=== PATIENT | male | born 1955 | race Caucasian/White ===

== ENCOUNTER 2017-02-26 18:23 | Inpatient (IN) ==
[2017-02-26 19:10] LABS: Basophils % 0.1 %; Hematocrit 35.1 % (37.5-50.1); Hemoglobin 11.5 g/dL (12.9-16.9); Immature Granulocytes % 0.5 % (0-4); Lymphocytes # 0.2 K/mcL (0.6-4.6); Lymphocytes % 1.6 %; Mean Corpuscular HGB Conc 32.8 g/dL (31.6-35.5); Mean Corpuscular Hemoglobin 29.5 pg (28.0-33.3); Mean Platelet Volume 9.1 fL (9.4-12.4); Monocytes # 0.3 K/mcL (0.0-1.3); Neutrophils # 12.7 K/mcL (1.6-8.9); Platelet Count 323 K/mcL (140-400); Red Cell Distribution Width 12.8 % (11.5-14.5); Segmented Neutrophils % 95.8 %
[2017-02-26 19:23] LABS: BUN/Creatinine Ratio 16 (6-26); Blood Urea Nitrogen 20 mg/dL (8-26); Calcium 9.4 mg/dL (8.6-10.8); Carbon Dioxide 25 mEq/L (19-29); Chloride 104 mEq/L (98-109); Glucose 145 mg/dL (70-99); Osmolality,Calculated 291 (280-300); Potassium 5.2 mEq/L (3.5-4.5); Sodium 138 mEq/L (136-145); eGFR For African Americans > 60 (> 60); eGFR For Non-African Americans > 60 (> 60)
[2017-02-26] MEDS ORDERED: 0.9 % Sodium Chloride 1,000 ML IVC ONE ×2 (19:26→19:35)
[2017-02-26] MEDS ORDERED: Ipratropium/Albuterol Neb 3 ML IH ONE (19:28)
[2017-02-26] MEDS ORDERED: Levofloxacin 750 MG/150 ML 750 MG/150 ML BAG IVPB ONE (19:35)
[2017-02-26] MEDS ORDERED: Piperacillin/Tazobactam 3.375 GM in D5% in Water (Mini-Bag+) 100 ML IVPB ONE (19:35)
[2017-02-26] MEDS ORDERED: Vancomycin 1,250 MG in D5% in Water 250 ML IVPB ONE (19:35)
--- NOTE | 2017-02-26 19:59 | Emergency Department Note ---
Disposition Clinical Impression: Hospital acquired PNA, Hyperkalemia, Elevated lactic acid level Disposition: Admitted As Inpatient Time of Disposition: 20:20 General Adult HPI - General Chief complaint: ED Shortness of Breath/Dyspnea Stated complaint: LYNDON/ cough Time Seen by Provider: 02/26/17 18:59 Source: patient, family Mode of arrival: ambulatory Limitations: no limitations Nursing Notes Reviewed: Yes Vital Signs Reviewed: Yes - History of Present Illness HPI Narrative: This is a 61-year-old male with a past medical history of COPD, recent pneumonia , rheumatoid arthritis, laryngeal cancer, CAD. He presents to the emergency department to 5 day history of worsening shortness of breath, subjective fevers and chills, a cough is productive of yellowish sputum. He went to have a CT scan today of his chest to screen for metastasis of cancer, and his cancer doctor told him to report to the emergency department regarding his positive CT scan. Pain Scale: 7 - Related Data Home Medications Medication Instructions Recorded Confirmed Alprazolam [Xanax] 1 mg PO BID 02/14/15 02/26/17 Budesonide/Formoterol 160/4.5 2 puff IH BIDR 02/14/15 02/26/17 [Symbicort 160/4.5] Clopidogrel [Plavix] 75 mg PO QAM 02/14/15 02/26/17 Docusate Sodium [Colace] 100 mg PO DAILY PRN 02/14/15 02/26/17 Hydroxychloroquine [Plaquenuil] 400 mg PO DAILY 02/14/15 02/26/17 Isosorbide MONOnitrate (24 HR) 60 mg PO QAM 02/14/15 02/26/17 [Imdur] Simvastatin [Zocor] 40 mg PO HS 02/14/15 02/26/17 Albuterol Neb [Proventil Neb] 2.5 mg IH TID 02/26/17 02/26/17 Ascorbic Acid [Vitamin C] 500 mg PO DAILY 02/26/17 02/26/17 Aspirin Enteric Coated [Aspirin EC] 162 mg PO DAILY 02/26/17 02/26/17 Cyanocobalamin (B-12) [Vitamin B12] 1,000 mcg PO DAILY 02/26/17 02/26/17 Ferrous Sulfate [Iron] 325 mg PO DAILY 02/26/17 02/26/17 Folic Acid 1 mg PO DAILY 02/26/17 02/26/17 Ipratropium Neb [Atrovent Neb] 0.5 mg IH TID 02/26/17 02/26/17 Lisinopril [Zestril] 40 mg PO DAILY 02/26/17 02/26/17 Loratadine [Claritin] 10 mg PO DAILY 02/26/17 02/26/17 Metoprolol Succinate 100 mg PO DAILY 02/26/17 02/26/17 Nitroglycerin [Nitrostat] 0.4 mg SL Q5M PRN 02/26/17 02/26/17 Omeprazole [PriLOSEC] 40 mg PO DAILY 02/26/17 02/26/17 Oxycodone HCl [Roxicodone 30 MG 30 mg PO Q4H PRN 02/26/17 02/26/17 Immed Release] Sennosides [Senna] 17.2 mg PO HS PRN 02/26/17 02/26/17 Tofacitinib Citrate [Xeljanz Xr] 11 mg PO DAILY 02/26/17 02/26/17 predniSONE [PredniSONE] 5 mg PO DAILY 02/26/17 02/26/17 Allergies Allergy/AdvReac Type Severity Reaction Status Date / Time No Known Allergies Allergy Verified 02/14/15 07:39 All systems ED: reviewed and negative except as stated. Cardiovascular: Reports: dyspnea on exertion. Denies: chest pain, palpitations Respiratory: Reports: cough, dyspnea, wheezes, sputum production Past Medical History - Past Medical History Medical history: Reports: arthritis, COPD, hyperlipidemia, hypertension, other Psychiatric history: Reports: no psych history - Social History Smoking Status: Former smoker Smokeless Tobacco Status: No Alcohol use: Reports: none, occasionally Drug use: Reports: marijuana Physical Exam - General Limitations: no limitations General appearance: alert - Head Head exam: atraumatic, normocephalic - Eye Eye exam: Present: normal appearance - ENT ENT exam: normal oropharynx, mucous membranes dry - Neck Neck exam: Present: tenderness (Left lateral side) - Chest Chest inspection: Present: symmetric chest wall rise. Absent: tenderness, rash - Respiratory Respiratory exam: Present: wheezes. Absent: respiratory distress, stridor, accessory muscle use - Abdominal Exam Abdominal exam: Present: soft, tenderness (Has tenderness over a ventral hernia. ) Course Course Narrative: This is a 61-year-old male with a past medical history of COPD, rheumatoid arthritis, recent pneumonia requiring hospitalization in the last 90 days. He presented to the emergency department with a five-day history of shortness of breath, subjective chills and fever, cough and yellow sputum production. This is immediate concern for hospital-acquired pneumonia. This patient is immunosuppressed and that taking steroids as well as other immunosuppressive drugs. At this time, we will order a chest x-ray, you a recent chest CT that was obtained today, obtained an EKG, troponin, BNP, BMP, lactic acid, and 2 blood cultures. - Reevaluation(s) Reevaluation #1: This patient's chest CT reveals groundglass appearance of the right upper lobe. He also has a leukocytosis of 13.2, elevated lactic acid. This patient also has a elevated potassium of 5.2. At this time, we will give the patient a liter of normal saline, DuoNeb, calcium gluconate to protect his myocardium, and IV antimicrobials. We are providing him with Levaquin, vancomycin, and Zosyn at this time. This patient has hospital-acquired pneumonia and due to his immunosuppression, he is at risk of a worsening infection. I think this patient is a good candidate to be admitted for his intravenous antimicrobials. I talked to Dr. Wong the hospitalist, and he agreed to admit this patient. Time: 20:20 Vital Signs Temperature 97.5 F L 02/26/17 18:30 Pulse Rate 97 02/26/17 18:30 Respiratory Rate 20 02/26/17 18:30 Blood Pressure 134/78 02/26/17 18:30 O2 Sat by Pulse Oximetry 95 02/26/17 18:30 Temperature 98.1 F 02/26/17 21:33 Pulse Rate 94 02/26/17 21:21 Respiratory Rate 18 02/26/17 21:33 Blood Pressure 136/91 02/26/17 21:33 O2 Sat by Pulse Oximetry 100 02/26/17 21:21 Oxygen Delivery Oxygen Delivery Nasal Cannula Medical Decision Making - [facility] Narrative Medical decision making narrative: Vital Signs Temperature 97.5 F L 02/26/17 18:30 Pulse Rate 97 02/26/17 18:30 Respiratory Rate 20 02/26/17 18:30 Blood Pressure 134/78 02/26/17 18:30 O2 Sat by Pulse Oximetry 95 02/26/17 18:30 Temperature 97.5 F L 02/26/17 18:30 Pulse Rate 94 02/26/17 19:29 Respiratory Rate 16 02/26/17 19:55 Blood Pressure 123/87 02/26/17 19:29 O2 Sat by Pulse Oximetry 97 02/26/17 19:55 Oxygen Delivery Oxygen Delivery Room Air Chest X-Ray 02/26/17 18:37 IMPRESSION: 1. Cardiomegaly with mild vascular congestion. 2. Small bilateral pleural effusions. D/ / Arnoldo Vanessa MD / Arnoldo Vanessa MD Interpreting Provider: Arnoldo Vanessa MD - Medical Records Medical records reviewed: Yes I reviewed the patient's medical records. - Lab Data Lab results reviewed: Yes I reviewed the patient's lab results. Result diagrams: 02/26/17 19:00 02/26/17 19:00 Lab Results 02/26/17 02/26/17 02/26/17 Range/Units 19:00 19:00 19:00 WBC 13.2 H (4.3-11.1) K/mcL RBC 3.90 L (4.19-5.50) M/mcL Hgb 11.5 L (12.9-16.9) g/dL Hct 35.1 L (37.5-50.1) % MCV 90.0 (83.0-100.0) fL MCH 29.5 (28.0-33.3) pg MCHC 32.8 (31.6-35.5) g/dL RDW 12.8 (11.5-14.5) % Plt Count 323 (140-400) K/mcL MPV 9.1 L (9.4-12.4) fL Immature Gran % 0.5 (0-4) % Seg Neutrophils % 95.8 % Lymphocytes % 1.6 % Monocytes % 2.0 % Eosinophils % 0.0 % Basophils % 0.1 % Neutrophils # 12.7 H (1.6-8.9) K/mcL Lymphocytes # 0.2 L (0.6-4.6) K/mcL Monocytes # 0.3 (0.0-1.3) K/mcL Eosinophils # 0.0 (0.0-0.6) K/mcL Basophils # 0.0 (0.0-0.2) K/mcL PT (9.4-12.1) Seconds INR APTT (26.0-36.0) Seconds Sodium 138 (136-145) mEq/L Potassium 5.2 H (3.5-4.5) mEq/L Chloride 104 (98-109) mEq/L Carbon Dioxide 25 (19-29) mEq/L BUN 20 (8-26) mg/dL Creatinine 1.22 (0.72-1.25) mg/dL Est GFR ( Amer) > 60 (> 60) Est GFR (Non-Af Amer) > 60 (> 60) BUN/Creatinine Ratio 16 (6-26) Glucose 145 H (70-99) mg/dL Calculated Osmolality 291 (280-300) Lactic Acid 2.3 H (0.5-2.2) mmol/L Calcium 9.4 (8.6-10.8) mg/dL Magnesium 1.8 (1.6-2.6) mg/dL Troponin I (0-0.03) ng/mL B-Natriuretic Peptide (0-100) pg/mL Urine Color (Yellow) Urine Clarity (Clear) Urine pH (5.0-8.0) pH Units Ur Specific [place] (1.010-1.025) Urine Protein (Neg-Trace) mg/dL Urine Glucose (UA) (Normal) mg/dL Urine Ketones (Negative) mg/dL Urine Blood (Negative) Urine Nitrite (Negative) Urine Bilirubin (Negative) Urine Urobilinogen (Normal) mg/dL Ur Leukocyte Esterase (Negative) Ur Culture Indicated? (NO) 02/26/17 02/26/17 02/26/17 Range/Units 19:00 19:00 19:00 WBC (4.3-11.1) K/mcL RBC (4.19-5.50) M/mcL Hgb (12.9-16.9) g/dL Hct (37.5-50.1) % MCV (83.0-100.0) fL MCH (28.0-33.3) pg MCHC (31.6-35.5) g/dL RDW (11.5-14.5) % Plt Count (140-400) K/mcL MPV (9.4-12.4) fL Immature Gran % (0-4) % Seg Neutrophils % % Lymphocytes % % Monocytes % % Eosinophils % % Basophils % % Neutrophils # (1.6-8.9) K/mcL Lymphocytes # (0.6-4.6) K/mcL Monocytes # (0.0-1.3) K/mcL Eosinophils # (0.0-0.6) K/mcL Basophils # (0.0-0.2) K/mcL PT 10.7 (9.4-12.1) Seconds INR 1.0 APTT 28.5 (26.0-36.0) Seconds Sodium (136-145) mEq/L Potassium (3.5-4.5) mEq/L Chloride (98-109) mEq/L Carbon Dioxide (19-29) mEq/L BUN (8-26) mg/dL Creatinine (0.72-1.25) mg/dL Est GFR ( Amer) (> 60) Est GFR (Non-Af Amer) (> 60) BUN/Creatinine Ratio (6-26) Glucose (70-99) mg/dL Calculated Osmolality (280-300) Lactic Acid (0.5-2.2) mmol/L Calcium (8.6-10.8) mg/dL Magnesium (1.6-2.6) mg/dL Troponin I 0.00 (0-0.03) ng/mL B-Natriuretic Peptide 87 (0-100) pg/mL Urine Color (Yellow) Urine Clarity (Clear) Urine pH (5.0-8.0) pH Units Ur Specific [place] (1.010-1.025) Urine Protein (Neg-Trace) mg/dL Urine Glucose (UA) (Normal) mg/dL Urine Ketones (Negative) mg/dL Urine Blood (Negative) Urine Nitrite (Negative) Urine Bilirubin (Negative) Urine Urobilinogen (Normal) mg/dL Ur Leukocyte Esterase (Negative) Ur Culture Indicated? (NO) 02/26/17 02/26/17 Range/Units 19:55 20:03 WBC (4.3-11.1) K/mcL RBC (4.19-5.50) M/mcL Hgb (12.9-16.9) g/dL Hct (37.5-50.1) % MCV (83.0-100.0) fL MCH (28.0-33.3) pg MCHC (31.6-35.5) g/dL RDW (11.5-14.5) % Plt Count (140-400) K/mcL MPV (9.4-12.4) fL Immature Gran % (0-4) % Seg Neutrophils % % Lymphocytes % % Monocytes % % Eosinophils % % Basophils % % Neutrophils # (1.6-8.9) K/mcL Lymphocytes # (0.6-4.6) K/mcL Monocytes # (0.0-1.3) K/mcL Eosinophils # (0.0-0.6) K/mcL Basophils # (0.0-0.2) K/mcL PT (9.4-12.1) Seconds INR APTT (26.0-36.0) Seconds Sodium (136-145) mEq/L Potassium (3.5-4.5) mEq/L Chloride (98-109) mEq/L Carbon Dioxide (19-29) mEq/L BUN (8-26) mg/dL Creatinine (0.72-1.25) mg/dL Est GFR ( Amer) (> 60) Est GFR (Non-Af Amer) (> 60) BUN/Creatinine Ratio (6-26) Glucose (70-99) mg/dL Calculated Osmolality (280-300) Lactic Acid 2.4 H (0.5-2.2) mmol/L Calcium (8.6-10.8) mg/dL Magnesium (1.6-2.6) mg/dL Troponin I (0-0.03) ng/mL B-Natriuretic Peptide (0-100) pg/mL Urine Color Yellow (Yellow) Urine Clarity Clear (Clear) Urine pH 6.0 (5.0-8.0) pH Units Ur Specific [place] 1.008 L (1.010-1.025) Urine Protein Negative (Neg-Trace) mg/dL Urine Glucose (UA) Normal (Normal) mg/dL Urine Ketones Negative (Negative) mg/dL Urine Blood Negative (Negative) Urine Nitrite Negative (Negative) Urine Bilirubin Negative (Negative) Urine Urobilinogen Normal (Normal) mg/dL Ur Leukocyte Esterase Negative (Negative) Ur Culture Indicated? NO (NO) - Radiology Data Radiology results reviewed: Yes I reviewed the patient's radiology results. Chest X-Ray 02/26/17 18:37 IMPRESSION: 1. Cardiomegaly with mild vascular congestion. 2. Small bilateral pleural effusions. D/ / Arnoldo Vanessa MD / Arnoldo Vanessa MD Interpreting Provider: Arnoldo Vanessa MD - EKG Data EKG #1 EKG attestation: Yes I reviewed and interpreted this EKG. EKG results narrative: 02/26/2017 Ventricular Rate 95 bpm, [place] interval 145 and 6, QRS duration 146, QT 372 ms, QTC 425 ms, left axis deviation. Sinus rhythm with a ventricular rate of 95 bpm. There are no new ST changes from the last EKG that 10/24/2015. Attestation Statement - Attestation Attestation: I personally interviewed and examined this patient and my medical decision- making was reviewed with the Resident Physician, Dr. Ann. I agree with the documented findings, disposition and treatment plan as described except to the extent set forth below. Patient is a 61-year-old white male with a recent diagnosis of laryngeal cancer , as well as a history of COPD, CAD who presents to the emergency department with a five-day history of gradually worsening shortness of breath, productive cough, generalized malaise and fatigue, and subjective fevers and chills. Patient was having some imaging done today in regards to his cancer workup and was undergoing a CT of his chest and found to have a right-sided pneumonia. Patient clinically presents with symptoms consistent with this. Patient's having no exacerbation of COPD or wheezing that I carries having no respiratory distress on arrival and his room air sats are stable. He is not on supple oxygen. Patient had pneumonia 3 months ago as well and was on antibiotics at that time and hospitalized. Patient is currently on immunosuppressive agents for therapy for his CA. I agree with patient's physical exam findings as documented. Afebrile not tachycardic or hypotensive and not hypoxic on arrival. Patient had an IV saline well-established placed on bus driver/monitor and continuous pulse ox, labs were drawn and sent and chest x-ray was obtained. Patient's chest x-ray does show some mild pulmonary edema. Patient denies any prior history of CHF. We went ahead and initiated fluid bolus and started empiric antibiotics for hospital-acquired pneumonia. Patient was found to have mild hyperkalemia and was started on medications in the ED for that. Renal function is normal. At no time did patient have any signs of respiratory distress or shortness of breath. IV antibiotics been initiated lactate remained elevated following 2 L bolus but we will hold any further fluids due to pulmonary edema on chest x- ray. Patient has remained hemodynamically stable at this time and I do not feel meet SIRS criteria to require any further fluid resuscitation. Patient will be admitted for further evaluation and treatment of his pneumonia. He is was discussed with the hospitalist and accepted patient for admission
[2017-02-26 20:01] LABS: Magnesium 1.8 mg/dL (1.6-2.6)
[2017-02-26 20:06] LABS: Prothrombin Time 10.7 Seconds (9.4-12.1)
[2017-02-26 20:08] LABS: Activated Partial Thrombo Time 28.5 Seconds (26.0-36.0)
[2017-02-26 20:13] LABS: Bilirubin,Urine Negative (Negative); Blood,Urine Negative (Negative); Clarity,Urine Clear (Clear); Color,Urine Yellow (Yellow); Glucose,Urine (UA) Normal (Normal); Ketones,Urine Negative (Negative); Leukocyte Esterase,Urine Negative (Negative); Nitrite,Urine Negative (Negative); Protein,Urine Negative (Neg-Trace); Specific Gravity,Urine 1.008 (1.010-1.025); Urobilinogen,Urine Normal (Normal)
[2017-02-26] MEDS ORDERED: Calcium Gluconate 1,000 MG in D5% in Water 100 ML IVPB ONE (20:21)
--- NOTE | 2017-02-26 21:55 | Internal Med History&Physical ---
Date of Encounter: 02/27/17 Time of Encounter: 21:54 Assessment and Plan (1) Hospital acquired PNA Current visit: Yes Status: Acute HCAP, immunosuppressed due to rheumatoid arthritis, tofacitinib and chronic steroid dependence - SIRS on admission (tachycardia 95 bpm, leukocytosis 13k), no shock. RUL opacity is small on CT image review but symptoms suggest pneumonia, will treat as such. - Cont levofloxacin / Zosyn (02/26- ) - if develops shock, or clinically deteriorates, give stress dose steroids - antitussives prn - Hold tofacitinib for now - OP follow up CT for pulmonary nodules (2) Hyperkalemia Current visit: Yes Status: Acute s/p IV fluids, recheck with AM labs (3) Elevated lactic acid level Current visit: Yes Status: Acute 2.3-2.4 despite IVF s/p IV fluids - Recheck with AM labs (4) CAD (coronary artery disease) Current visit: No Status: Chronic No angina - Cont ASA, statin, Plavix, ImDur, metoprolol, lisinopril Qualifiers: Coronary Disease-Associated Artery/Lesion type: [place] artery Associated angina: without angina Qualified Code(s): I25.10 - Atherosclerotic heart disease of [place] coronary artery without angina pectoris (5) Rheumatoid arthritis Current visit: No Status: Chronic - Hold tofacitinib - Cont prednisone 5 mg daily - Cont Plaquenil Qualifiers: Rheumatoid factor presence: unspecified presence Laterality: unspecified laterality Qualified Code(s): M06.9 - Rheumatoid arthritis, unspecified Internal Medicine - H&P: HPI Chief complaint: dyspnea Admitted From: Emergency Dept Plans for Post Hospital Care: Home History of present illness: 61M with COPD, rheumatoid arthritis on tofacitinib, laryngeal cancer s/p radiotherapy and multiple other medical problems noticed worsening of baseline dyspnea for 5 days and cough with production of yellow sputum for 2 days. H eunderwent a scheduled surveillance CT scan by oncology on 02/26 which showed RUL PNA thus presented to the hospital for treatment. Associated body aches, feeling hot and cold, diaphoresis, headache, dizziness, left sided neck pain, subjective fevers. Long standing mid abdominal pain at hernia site. A 10-point ROS is negative for eye or ear symptoms, chest pain, n, v,d, c, dysuria or focal motor deficits other than as mentioned elsewhere in this document. PMH/PSH: - Rheumatoid arthritis, on tofacitinib and prednsione 5 mg daily - COPD, oxygen dependenet, 3 l/NC - Laryngeal cancer, treated with radiation therapy until 08/2016, now getting surveillance scans - Atrial flutter s/p ablation 2016 - Baseline RBBB/LAFB - CAD s/p angiplasty x 2, PCI with stent x 1, 2006 - AMINTA-CPAP - HTN - HL - Renal cancer s/p right nephrectomy - Prostate cancer s/p brachytherapy - B/L hip replacement - Carpal tunnel release - Herniorrhaphy SH: Quit tobacco in 2009. No alcohol or drugs FH: Father-CAD. Mother-emphysema Past Med Surg Social Fam HX - Past Medical History Medical history: arthritis, COPD, hyperlipidemia, hypertension, other Psychiatric history: no psych history - Social History Smoking Status: Former smoker Smokeless Tobacco Status: No Alcohol use: none, occasionally Drug use: marijuana - Family History Father Adopted: No Family Member Ethnicity: Non- Living Status: Hx Family Cardiac Disorders: Yes (CAD) Mother Hx Family Respiratory Disorders: Yes Internal Medicine - H&P: Meds Alprazolam [Xanax] 1 mg PO BID 02/14/15 [History] Budesonide/Formoterol 160/4.5 [Symbicort 160/4.5] 2 puff IH BIDR 02/14/15 [ History] Clopidogrel [Plavix] 75 mg PO QAM 02/14/15 [History] Docusate Sodium [Colace] 100 mg PO DAILY PRN 02/14/15 [History] Hydroxychloroquine [Plaquenuil] 400 mg PO DAILY 02/14/15 [History] Isosorbide MONOnitrate (24 HR) [Imdur] 60 mg PO QAM 02/14/15 [History] Simvastatin [Zocor] 40 mg PO HS 02/14/15 [History] Albuterol Neb [Proventil Neb] 2.5 mg IH TID 02/26/17 [History] Ascorbic Acid [Vitamin C] 500 mg PO DAILY 02/26/17 [History] Aspirin Enteric Coated [Aspirin EC] 162 mg PO DAILY 02/26/17 [History] Cyanocobalamin (B-12) [Vitamin B12] 1,000 mcg PO DAILY 02/26/17 [History] Ferrous Sulfate [Iron] 325 mg PO DAILY 02/26/17 [History] Folic Acid 1 mg PO DAILY 02/26/17 [History] Ipratropium Neb [Atrovent Neb] 0.5 mg IH TID 02/26/17 [History] Lisinopril [Zestril] 40 mg PO DAILY 02/26/17 [History] Loratadine [Claritin] 10 mg PO DAILY 02/26/17 [History] Metoprolol Succinate 100 mg PO DAILY 02/26/17 [History] Nitroglycerin [Nitrostat] 0.4 mg SL Q5M PRN 02/26/17 [History] Omeprazole [PriLOSEC] 40 mg PO DAILY 02/26/17 [History] Oxycodone HCl [Roxicodone 30 MG Immed Release] 30 mg PO Q4H PRN 02/26/17 [ History] Sennosides [Senna] 17.2 mg PO HS PRN 02/26/17 [History] Tofacitinib Citrate [Xeljanz Xr] 11 mg PO DAILY 02/26/17 [History] predniSONE [PredniSONE] 5 mg PO DAILY 02/26/17 [History] 3 Allergy/AdvReac Type Severity Reaction Status Date / Time No Known Allergies Allergy Verified 02/14/15 07:39 All Systems PM: A 10-system review of systems was performed and is negative for pertinent findings except as documented above in the HPI. - Constitutional Vitals: Temp Pulse Resp BP Pulse Ox 98.1 F 94 18 136/91 100 02/26/17 21:33 02/26/17 21:21 02/26/17 21:33 02/26/17 21:33 02/26/17 21:21 General appearance: Present: A&O X 3, pleasant, no acute distress - Head Head exam: Present: atraumatic, normal inspection - Eye Eye exam: Present: PERRL, conjuntiva pink, sclera anicteric - ENT ENT exam: Present: mucous membranes moist, normal exam - Neck Neck exam general surgery: Present: normal inspection, supple. Absent: lymphadenopathy, tenderness, nuchal rigidity - Respiratory Respiratory exam: Present: CTAB. Absent: accessory muscle use, rales, respiratory distress, rhonchi, wheezes - Cardiovascular Cardiovascular exam: Present: RRR, +S1, +S2. Absent: rubs, systolic murmur - GI/Abdominal GI/Abdominal exam: Present: hernia (midline), normal bowel sounds, soft. Absent : distended, firm, guarding, rebound, rigid - Extremities Exam Extremities exam: Present: normal inspection. Absent: calf tenderness, pedal edema, tenderness - Back Exam Back exam: Absent: CVA tenderness (L), CVA tenderness (R) - Neurological Exam Neurological exam: Present: alert, oriented X3. Absent: no focal deficits, facial droop, speech deficit - Psychiatric Psychiatric exam: Present: normal affect, normal mood. Absent: agitated - Skin Skin exam: Present: normal color. Absent: rash Internal Med - H&P Results - Labs CBC & Chem 7: 02/26/17 19:00 02/26/17 19:00 - EKG Data -: EKG Interpreted by Myself (Sinus 95 bpm, bifasscicular block)
[2017-02-26] MEDS ORDERED: Sennosides 8.6 MG TABLET PO PRN (22:57)
[2017-02-26] MEDS ORDERED: Acetaminophen 325 MG TABLET PO PRN (23:01)
[2017-02-26] MEDS ORDERED: Naloxone 0.4 MG/ML INJ IVP PRN (23:01)
[2017-02-26] MEDS ORDERED: Benzonatate 100 MG CAPSULE PO PRN (23:16)
[2017-02-26] MEDS: *HR* OxyCODONE Immed Rel 15 MG TABLET PO PRN (23:46)
[2017-02-26] MEDS: ALPRAZolam 1 MG TABLET PO SCH (23:46)
[2017-02-27] MEDS: Budesonide/Formoterol 160/4.5 MDI IH SCH ×3 (00:19→21:48)
[2017-02-27] MEDS: Albuterol 2.5 MG/3 ML NEBULIZER IH SCH ×2 (02:48→10:44)
[2017-02-27] MEDS: Ipratropium Neb 0.5 MG NEBULIZER IH SCH ×2 (02:48→10:43)
[2017-02-27] MEDS: *HR* OxyCODONE Immed Rel 15 MG TABLET PO PRN ×5 (04:32→22:39)
[2017-02-27 05:26] LABS: Basophils % 0.2 %; Eosinophils % 0.7 %; Immature Granulocytes % 0.5 % (0-4); Lymphocytes # 0.3 K/mcL (0.6-4.6); Lymphocytes % 5.3 %; Mean Corpuscular HGB Conc 33.3 g/dL (31.6-35.5); Mean Corpuscular Hemoglobin 30.4 pg (28.0-33.3); Mean Corpuscular Volume 91.2 fL (83.0-100.0); Mean Platelet Volume 8.9 fL (9.4-12.4); Monocytes # 0.4 K/mcL (0.0-1.3); Monocytes % 6.5 %; Neutrophils # 5.2 K/mcL (1.6-8.9); Platelet Count 253 K/mcL (140-400); Red Blood Count 3.29 M/mcL (4.19-5.50); Red Cell Distribution Width 12.9 % (11.5-14.5); Segmented Neutrophils % 86.8 %
[2017-02-27] MEDS: Piperacillin/Tazobactam 3.375 GM in D5% in Water (Mini-Bag+) 100 ML IVPB SCH ×3 (05:30→22:40)
[2017-02-27] MEDS: *HR* Enoxaparin 40 MG/0.4 ML SYRINGE SQ SCH (05:31)
[2017-02-27 05:47] LABS: BUN/Creatinine Ratio 18 (6-26); Blood Urea Nitrogen 19 mg/dL (8-26); Calcium 8.9 mg/dL (8.6-10.8); Carbon Dioxide 28 mEq/L (19-29); Chloride 107 mEq/L (98-109); Glucose 128 mg/dL (70-99); Magnesium 1.8 mg/dL (1.6-2.6); Osmolality,Calculated 292 (280-300); Potassium 4.6 mEq/L (3.5-4.5); Sodium 139 mEq/L (136-145); eGFR For African Americans > 60 (> 60); eGFR For Non-African Americans > 60 (> 60)
[2017-02-27] MEDS: Lisinopril 20 MG TABLET PO SCH (09:06)
[2017-02-27] MEDS: Ascorbic Acid 500 MG TABLET PO SCH (09:06)
[2017-02-27] MEDS: Aspirin Enteric Coated 81 MG Tablet PO SCH (09:06)
[2017-02-27] MEDS: Isosorbide MONOnitrate (24 HR) 60 MG TAB.ER.24H PO SCH (09:06)
[2017-02-27] MEDS: Folic Acid 1 MG TABLET PO SCH (09:07)
[2017-02-27] MEDS: Cyanocobalamin (B-12) 1,000 MCG TABLET PO SCH (09:07)
[2017-02-27] MEDS: ALPRAZolam 1 MG TABLET PO SCH ×2 (09:07→22:39)
[2017-02-27] MEDS: Metoprolol XL (24 HR) Succ 50 MG TAB.ER.24H PO SCH (09:07)
[2017-02-27] MEDS: predniSONE 5 MG TABLET PO SCH (09:08)
[2017-02-27] MEDS: Loratadine 10 MG TABLET PO SCH (09:08)
--- NOTE | 2017-02-27 09:27 | Internal Med Progress Note ---
<Ramon Anderson - Last Filed: 02/27/17 14:12> Date of Encounter: 02/27/17 Time of Encounter: 09:27 - Assessment and plan (1) Hospital acquired PNA Current Visit: Yes Status: Acute Assessment and plan: Patient is a 61 year old male with history of immunosuppression by medication for RA, COPD on 3 L home oxygen, recent hospitalization for pneumonia, and history of multiple cancers who presented to the ED with complaints of shortness of breath, productive cough, and subjective fevers. CT 02/26/17 revealed new 1.5 x 1.2 cm nodular opacity in the right lower lobe and 0.4 cm ground glass nodules in upper lobes. New right upper lobe peribronchovascular ground glass opacities suspicious for pneumonia. WBC on arrival was 13.2, Lactic acid was 2.4. Overnight WBC normal at 6.0, patient vitals were normal and afebrile -Continue d1 of levaquin/zosyn, received one dose of vancomycin in the ED. -Continue d1 of vancomycin, pharmacy to dose -hold Tofacitinib -Continue following vitals, lab work as needed (2) Hyperkalemia Current Visit: Yes Status: Acute Assessment and plan: Potassium on admission was 5.2. Potassium this morning was 4.6 -continue monitoring labs (3) Elevated lactic acid level Current Visit: Yes Status: Resolved Assessment and plan: Resolved. Lactic acid at 2.4 upon admission, received IV fluids Lactic acid this morning at 1.0. (4) Lung nodule Current Visit: Yes Status: Acute Assessment and plan: CT chest 02/23/17 revealed new 1.5 x 1.2 cm nodular opacity in right lower lobe and 0.4 cm ground glass nodules in upper lobes. -Followup as outpatient with PCP and [facility] (5) Rheumatoid arthritis Current Visit: Yes Status: Chronic Assessment and plan: Known history of RA treated with Plaquenil, Prednisone 5mg qd, and Tofacitinib -Continue prednisone and plaquenil -Hold tofacitinib, to follow up with [employer]or Of [employer] regarding recommendation for reinitiation. Qualifiers: Rheumatoid arthritis location: hand Rheumatoid factor presence: unspecified presence Laterality: unspecified laterality Qualified Code(s): M06.9 - Rheumatoid arthritis, unspecified (6) CAD (coronary artery disease) Current Visit: Yes Status: Chronic Assessment and plan: Known histroy of CAD s/p angioplasty x2, PCI with stent x1 in 2005. -Continue home medications for chronic disease management. -Aspiring, statin, plavix, Imdur, metoprolol, lisinopril Qualifiers: Coronary Disease-Associated Artery/Lesion type: [place] artery [place] vs. transplanted heart: unspecified whether [place] or transplanted heart Associated angina: without angina Qualified Code(s): I25.10 - Atherosclerotic heart disease of [place] coronary artery without angina pectoris (7) COPD (chronic obstructive pulmonary disease) Current Visit: Yes Status: Chronic Assessment and plan: Known history of COPD on chronic 3L home oxygen. -Continue symbicort -Duonebs q8h scheduled -albuterol as needed -Continue monitoring vitals Qualifiers: COPD type: unspecified COPD Qualified Code(s): J44.9 - Chronic obstructive pulmonary disease, unspecified (8) DVT prophylaxis Current Visit: Yes Status: Acute Assessment and plan: Lovenox sq ordered - Subjective Interval history: Mr. Hancock is a 61 year old male who presented to the ED with complaint of 5 day history of shortness of breath, subjective fevers, and productive cough with yellow sputum. He has PMH pertinent for, but not limited to, COPD on home 3L nasal cannula oxygen, recent hospitalization for pneumonia, RA on tofacitinib daily prednisone and plaquenil, laryngeal cancer, history of prostate cancer s/p brachytherapy, and renal cancer s/p right nephrectomy. CT chest revealed new Right upper lobe peribronchovascular ground glass opacities suspicious for pneumonia. Patient was admitted for pneumonia, Hospital- acquired due to recent hospitalization and immunosuppressed status. Patient reports feeling better today, feels less short of breath and coughing has improved slightly. Patient also denies fevers, chills, and sweats. Patient in addition denies headaches, changes in vision, nausea, vomiting, dysphagia, chest pain, abdominal pain, changes in bowels or bladder, weakness, or loss of sensation. - Constitutional Vitals: Temp Pulse Resp BP Pulse Ox 97.7 F 72 18 118/86 100 02/27/17 07:02 02/27/17 07:02 02/27/17 07:02 02/27/17 07:02 02/27/17 07:02 General appearance: Present: A&O X 3, pleasant, no acute distress, obese, answers questions appropriately - Head Head exam: Present: atraumatic, normal inspection, normocephalic - Eye Eye exam: Present: EOMI, normal appearance, PERRL - ENT ENT exam: Present: mucous membranes moist, normal exam, normal oropharynx - Neck Neck exam general surgery: Present: full ROM, normal inspection, supple, trachea midline. Absent: tenderness - Respiratory Respiratory exam: Present: wheezes (mild expiratory wheezes). Absent: rales, respiratory distress, rhonchi, tachypnea - Cardiovascular Cardiovascular exam: Present: RRR, +S1, +S2. Absent: diastolic murmur, systolic murmur - GI/Abdominal GI/Abdominal exam: Present: normal bowel sounds, soft. Absent: distended, tenderness - Extremities Exam Extremities exam: Present: full ROM, normal inspection, warm, radial pulses palpable and symmetrical. Absent: pedal edema - Neurological Exam Neurological exam: Present: alert, CN II-XII intact, normal gait, oriented X3, no focal deficits, strengths equal and symetr throughout. Absent: facial droop , speech deficit - Psychiatric Psychiatric exam: Present: normal affect, normal mood - Skin Skin exam: Present: dry, intact, normal color, warm. Absent: rash Internal Medicine: Result - Labs CBC & Chem 7: 02/27/17 05:12 02/27/17 05:12 Labs: Short CBC 02/27/17 Range/Units 05:12 WBC 6.0 D (4.3-11.1) K/mcL Hgb 10.0 L D (12.9-16.9) g/dL Hct 30.0 L (37.5-50.1) % Plt Count 253 (140-400) K/mcL Neutrophils # 5.2 (1.6-8.9) K/mcL BMP 02/27/17 05:12 Sodium 139 Potassium 4.6 H Chloride 107 Carbon Dioxide 28 BUN 19 Creatinine 1.03 Glucose 128 H Calcium 8.9 - ABG Interpretation ABG results: PT/INR, D-dimer PT 10.7 Seconds (9.4-12.1) 02/26/17 19:00 Consult Discharge Plan - Plan Referrals: Dong Macedo DO [Primary Care Provider] - <Scooby-Ras Golden - Last Filed: 02/27/17 15:35> Date of Encounter: 02/27/17 - Constitutional Vitals: Temp Pulse Resp BP Pulse Ox 97.8 F 78 17 98/54 96 02/27/17 15:02 02/27/17 15:02 02/27/17 15:02 02/27/17 15:02 02/27/17 15:02 Internal Medicine: Result - Labs CBC & Chem 7: 02/27/17 05:12 02/27/17 05:12 Labs: Short CBC 02/27/17 Range/Units 05:12 WBC 6.0 D (4.3-11.1) K/mcL Hgb 10.0 L D (12.9-16.9) g/dL Hct 30.0 L (37.5-50.1) % Plt Count 253 (140-400) K/mcL Neutrophils # 5.2 (1.6-8.9) K/mcL BMP 02/27/17 05:12 Sodium 139 Potassium 4.6 H Chloride 107 Carbon Dioxide 28 BUN 19 Creatinine 1.03 Glucose 128 H Calcium 8.9 - ABG Interpretation ABG results: PT/INR, D-dimer PT 10.7 Seconds (9.4-12.1) 02/26/17 19:00 - Attending Attestation I examined this patient and my medical decision-making was reviewed with the Resident Physician. I agree with the documented findings, disposition and treatment plan as described except to the extent set forth below. Patient was seen and examined by me. Admitted last night for healthcare associated pneumonia. IV antibiotics being continued. Patient does have a history of immunosuppression due to medication use for rheumatoid arthritis. He was recently hospitalized for pneumonia and history of prostate cancer and renal cancer and recently diagnosed laryngeal cancer. Patient feels better today and has no other acute complaints. Temperature 97.8, heart rate 78, blood pressure 98/54, O2 sat 96% on 3 L O2. Heart S1-S2 positive no murmurs, lungs bilateral good entry, mild wheezing bilaterally. Abdomen soft nontender no muscle guarding. Extremities all pulses strong no edema.
[2017-02-27] MEDS: Vancomycin 1,250 MG in D5% in Water 250 ML IVPB SCH ×2 (13:17→23:57)
[2017-02-27] MEDS: Ipratropium/Albuterol Neb 3 ML IH SCH (16:58)
--- NOTE | 2017-02-27 17:03 | Electrocardiograph Report ---
[place] [id number] Test Date: 2017-02-26 Pat Name: Lawson Hancock Department: 105 Room: 3A Gender: M Telesales Advisor: NAVID : [id number] Requested By: Sonny Logan Order Number: [id number] Reading MD: Aileen Trimble Measurements Intervals [place] Rate: 95 P: 67 NH: 145 QRS: -53 QRSD: 146 T: 58 QT: 372 QTc: 425 Interpretive Statements SINUS RHYTHM RIGHT BUNDLE BRANCH BLOCK LEFT ANTERIOR FASCICULAR BLOCK Electronically Signed On 02-27-2017 17:02:15 EDT by Aileen Trimble
[2017-02-27] MEDS: levoFLOXacin 750 MG TABLET PO SCH (17:44)
[2017-02-28] MEDS: Ipratropium/Albuterol Neb 3 ML IH SCH ×3 (01:09→16:08)
[2017-02-28] MEDS: *HR* OxyCODONE Immed Rel 15 MG TABLET PO PRN ×5 (03:28→22:16)
[2017-02-28 06:08] LABS: BUN/Creatinine Ratio 14 (6-26); Blood Urea Nitrogen 15 mg/dL (8-26); Calcium 8.8 mg/dL (8.6-10.8); Carbon Dioxide 32 mEq/L (19-29); Chloride 104 mEq/L (98-109); Glucose 98 mg/dL (70-99); Osmolality,Calculated 291 (280-300); Potassium 4.4 mEq/L (3.5-4.5); Sodium 140 mEq/L (136-145); eGFR For African Americans > 60 (> 60); eGFR For Non-African Americans > 60 (> 60)
[2017-02-28] MEDS: Piperacillin/Tazobactam 3.375 GM in D5% in Water (Mini-Bag+) 100 ML IVPB SCH ×3 (06:28→22:16)
[2017-02-28] MEDS: *HR* Enoxaparin 40 MG/0.4 ML SYRINGE SQ SCH (06:28)
[2017-02-28] MEDS: ALPRAZolam 1 MG TABLET PO SCH ×2 (09:05→20:20)
[2017-02-28] MEDS: Isosorbide MONOnitrate (24 HR) 60 MG TAB.ER.24H PO SCH (09:05)
[2017-02-28] MEDS: Folic Acid 1 MG TABLET PO SCH (09:06)
[2017-02-28] MEDS: Lisinopril 20 MG TABLET PO SCH (09:06)
[2017-02-28] MEDS: Loratadine 10 MG TABLET PO SCH (09:06)
[2017-02-28] MEDS: Cyanocobalamin (B-12) 1,000 MCG TABLET PO SCH (09:06)
[2017-02-28] MEDS: Ascorbic Acid 500 MG TABLET PO SCH (09:06)
[2017-02-28] MEDS: predniSONE 5 MG TABLET PO SCH (09:06)
[2017-02-28] MEDS: Aspirin Enteric Coated 81 MG Tablet PO SCH (09:07)
[2017-02-28] MEDS: Metoprolol XL (24 HR) Succ 50 MG TAB.ER.24H PO SCH (09:07)
[2017-02-28] MEDS: Budesonide/Formoterol 160/4.5 MDI IH SCH ×2 (10:07→19:56)
[2017-02-28] MEDS: Vancomycin 1,250 MG in D5% in Water 250 ML IVPB SCH (13:35)
--- NOTE | 2017-02-28 15:41 | Internal Med Progress Note ---
Date of Encounter: 02/28/17 Time of Encounter: 10:00 - Assessment and plan (1) HCAP (healthcare-associated pneumonia) Current Visit: No Status: Acute Assessment and plan: Healthcare associated pneumonia, right upper lobe - present on admission - improving slowly Patient is a 61 year old male with history of immunosuppression by medication for RA, COPD on 3 L home oxygen, recent hospitalization for Pneumonia H/o recently treated laryngeal cancer - status post radiation therapy until 2016 History of renal cancer - status post right nephrectomy History of prostate cancer - that is post brachytherapy Cultures - no growth CT (02/26/17) - new 1.5 x 1.2 cm nodular opacity in the right lower lobe and 0.4 cm ground glass nodules in upper lobes. New right upper lobe peribronchovascular ground glass opacities suspicious for pneumonia Lactic acid - 1.0 WBC - 6.0 Continue IV Zosyn, IV Vancomycin, Levaquin, hold Tofacitinib Continue to monitor closely (2) Lung nodule Current Visit: Yes Status: Acute Assessment and plan: CT chest 02/23/17 revealed new 1.5 x 1.2 cm nodular opacity in right lower lobe and 0.4 cm ground glass nodules in upper lobes. Followup as outpatient with PCP and [facility] (3) COPD (chronic obstructive pulmonary disease) Current Visit: Yes Status: Chronic Assessment and plan: Known history of COPD on chronic 3L home oxygen - mild exacerbation, now improved -Continue symbicort -Duonebs q8h scheduled -albuterol as needed -Continue monitoring vitals Qualifiers: COPD type: unspecified COPD Qualified Code(s): J44.9 - Chronic obstructive pulmonary disease, unspecified (4) CAD (coronary artery disease) Current Visit: Yes Status: Chronic Assessment and plan: Known histroy of CAD s/p angioplasty x2, PCI with stent x1 in 2006 - stable Continue home medications - Aspiring, statin, Plavix, Imdur, metoprolol, lisinopril Qualifiers: Coronary Disease-Associated Artery/Lesion type: [place] artery [place] vs. transplanted heart: unspecified whether [place] or transplanted heart Associated angina: without angina Qualified Code(s): I25.10 - Atherosclerotic heart disease of [place] coronary artery without angina pectoris (5) Rheumatoid arthritis Current Visit: Yes Status: Chronic Assessment and plan: Known h/o RA treated with Plaquenil, Prednisone 5mg qd, and Tofacitinib Continue Prednisone and Plaquenil Hold tofacitinib, to follow up with [employer]olding [employer] Operator regarding recommendation for reinitiation Qualifiers: Rheumatoid arthritis location: hand Rheumatoid factor presence: unspecified presence Laterality: unspecified laterality Qualified Code(s): M06.9 - Rheumatoid arthritis, unspecified (6) DVT prophylaxis Current Visit: Yes Status: Acute Assessment and plan: Continue Lovenox subcutaneous - Time Spent With Patient 25 - 35 minutes - Subjective Interval history: Examined this morning. Patient is awake and alert. Not in any distress. Denies chest pain or shortness of breath. Continues to have mild nonproductive cough. No fever. Hemodynamically stable. Tolerating oral diet. States he feels better. No other acute events or complaints. - Constitutional Vitals: Temp Pulse Resp BP Pulse Ox 97.9 F 88 18 95/62 98 02/28/17 14:37 02/28/17 14:37 02/28/17 14:37 02/28/17 14:37 02/28/17 14:37 General appearance: Present: A&O X 3, pleasant, no acute distress, obese, answers questions appropriately - Head Head exam: Present: atraumatic - Eye Eye exam: Present: EOMI - ENT ENT exam: Present: mucous membranes moist - Respiratory Respiratory exam: Present: CTAB. Absent: rales, rhonchi, wheezes, tachypnea - Cardiovascular Cardiovascular exam: Present: RRR, +S1, +S2 - GI/Abdominal GI/Abdominal exam: Present: soft. Absent: distended, firm, guarding, tenderness - Extremities Exam Extremities exam: Present: radial pulses palpable and symmetrical. Absent: cyanotic, pedal edema - Neurological Exam Neurological exam: Present: alert, oriented X3, no focal deficits. Absent: facial droop, speech deficit Internal Medicine: Result - Labs CBC & Chem 7: 02/27/17 05:12 02/28/17 05:44 Labs: BMP 02/28/17 05:44 Sodium 140 Potassium 4.4 Chloride 104 Carbon Dioxide 32 H BUN 15 Creatinine 1.08 Glucose 98 Calcium 8.8 - ABG Interpretation ABG results: PT/INR, D-dimer PT 10.7 Seconds (9.4-12.1) 02/26/17 19:00 Consult Discharge Plan - Plan Referrals: Dong Macedo DO [Primary Care Provider] - 03/08/17 12:00 pm
[2017-02-28] MEDS: levoFLOXacin 750 MG TABLET PO SCH (17:29)
[2017-03-01] MEDS: Ipratropium/Albuterol Neb 3 ML IH SCH ×2 (02:04→11:16)
[2017-03-01] MEDS: *HR* OxyCODONE Immed Rel 15 MG TABLET PO PRN ×3 (02:25→13:49)
[2017-03-01] MEDS: *HR* Enoxaparin 40 MG/0.4 ML SYRINGE SQ SCH (05:52)
[2017-03-01] MEDS: Piperacillin/Tazobactam 3.375 GM in D5% in Water (Mini-Bag+) 100 ML IVPB SCH (05:52)
[2017-03-01] MEDS: Folic Acid 1 MG TABLET PO SCH (09:36)
[2017-03-01] MEDS: Isosorbide MONOnitrate (24 HR) 60 MG TAB.ER.24H PO SCH (09:36)
[2017-03-01] MEDS: Loratadine 10 MG TABLET PO SCH (09:36)
[2017-03-01] MEDS: Lisinopril 20 MG TABLET PO SCH (09:36)
[2017-03-01] MEDS: Aspirin Enteric Coated 81 MG Tablet PO SCH (09:36)
[2017-03-01] MEDS: Cyanocobalamin (B-12) 1,000 MCG TABLET PO SCH (09:37)
[2017-03-01] MEDS: Metoprolol XL (24 HR) Succ 50 MG TAB.ER.24H PO SCH (09:37)
[2017-03-01] MEDS: ALPRAZolam 1 MG TABLET PO SCH (09:37)
[2017-03-01] MEDS: Ascorbic Acid 500 MG TABLET PO SCH (09:37)
[2017-03-01] MEDS: predniSONE 5 MG TABLET PO SCH (09:37)
[2017-03-01 10:49] VITALS: BP 91/55
[2017-03-01] MEDS: Budesonide/Formoterol 160/4.5 MDI IH SCH (11:15)
--- NOTE | 2017-03-01 12:44 | Discharge Summary ---
Date of Encounter: 03/01/17 Time of Encounter: 08:30 - Discharge Diagnosis (1) HCAP (healthcare-associated pneumonia) Priority: Primary Status: Acute Comments: Healthcare Associated Pneumonia, right upper lobe - present on admission - improved Patient is a 61 year old male with history of immunosuppression by medication for RA, COPD on 3 L home oxygen, recent hospitalization for Pneumonia H/o recently treated laryngeal cancer - status post radiation therapy until 2016 History of renal cancer - status post right nephrectomy History of prostate cancer - S/P brachytherapy Cultures - no growth CT (02/26/17) - new 1.5 x 1.2 cm nodular opacity in the right lower lobe and 0.4 cm ground glass nodules in upper lobes. New right upper lobe peribronchovascular ground glass opacities suspicious for pneumonia Lactic acid - 1.0 WBC - 6.0 Continue antibiotics at home, advised to follow with primary care physician and oncologist (2) Lung nodule Priority: Primary Status: Acute Comments: CT chest 02/23/17 revealed new 1.5 x 1.2 cm nodular opacity in right lower lobe and 0.4 cm ground glass nodules in upper lobes Patient and state that they have copies of the CT scan and will follow up with their oncologist at [facility] Followup as outpatient with PCP and [facility] (3) COPD (chronic obstructive pulmonary disease) Priority: Primary Status: Chronic Comments: Known history of COPD on chronic 3L home oxygen - mild exacerbation, now improved -Continue symbicort -Duonebs as needed Qualifiers: COPD type: unspecified COPD Qualified Code(s): J44.9 - Chronic obstructive pulmonary disease, unspecified (4) CAD (coronary artery disease) Priority: Secondary Status: Chronic Comments: Known histroy of CAD s/p angioplasty x2, PCI with stent x1 in 2005 - stable Continue home medications - Aspiring, statin, Plavix, Imdur, metoprolol, lisinopril Qualifiers: Coronary Disease-Associated Artery/Lesion type: [place] artery [place] vs. transplanted heart: unspecified whether [place] or transplanted heart Associated angina: without angina Qualified Code(s): I25.10 - Atherosclerotic heart disease of [place] coronary artery without angina pectoris (5) Rheumatoid arthritis Priority: Secondary Status: Chronic Comments: Known h/o RA treated with Plaquenil, Prednisone 5mg qd, and Tofacitinib Continue all home meds Scheduled to follow up with [employer] Specialist Qualifiers: Rheumatoid arthritis location: hand Rheumatoid factor presence: unspecified presence Laterality: unspecified laterality Qualified Code(s): M06.9 - Rheumatoid arthritis, unspecified - Discharge Medications Prescriptions: Ipratropium/Albuterol Neb [Duoneb] 3 ml IH Q6HR PRN #30 inh PRN Reason: Shortness Of Breath/Wheezing levoFLOXacin [Levaquin] 750 mg PO QPM #10 tab Home Medications: Alprazolam [Xanax] 1 mg PO BID 02/14/15 [History] Budesonide/Formoterol 160/4.5 [Symbicort 160/4.5] 2 puff IH BIDR 02/14/15 [ History] Clopidogrel [Plavix] 75 mg PO QAM 02/14/15 [History] Docusate Sodium [Colace] 100 mg PO DAILY PRN 02/14/15 [History] Hydroxychloroquine [Plaquenuil] 400 mg PO DAILY 02/14/15 [History] Isosorbide MONOnitrate (24 HR) [Imdur] 60 mg PO QAM 02/14/15 [History] Simvastatin [Zocor] 40 mg PO HS 02/14/15 [History] Albuterol Neb [Proventil Neb] 2.5 mg IH TID 02/26/17 [History] Ascorbic Acid [Vitamin C] 500 mg PO DAILY 02/26/17 [History] Aspirin Enteric Coated [Aspirin EC] 162 mg PO DAILY 02/26/17 [History] Cyanocobalamin (B-12) [Vitamin B12] 1,000 mcg PO DAILY 02/26/17 [History] Ferrous Sulfate [Iron] 325 mg PO DAILY 02/26/17 [History] Folic Acid 1 mg PO DAILY 02/26/17 [History] Lisinopril [Zestril] 40 mg PO DAILY 02/26/17 [History] Loratadine [Claritin] 10 mg PO DAILY 02/26/17 [History] Metoprolol Succinate 100 mg PO DAILY 02/26/17 [History] Nitroglycerin [Nitrostat] 0.4 mg SL Q5M PRN 02/26/17 [History] Omeprazole [PriLOSEC] 40 mg PO DAILY 02/26/17 [History] Oxycodone HCl [Roxicodone 30 MG Immed Release] 30 mg PO Q4H PRN 02/26/17 [ History] Sennosides [Senna] 17.2 mg PO HS PRN 02/26/17 [History] Tofacitinib Citrate [Xeljanz Xr] 11 mg PO DAILY 02/26/17 [History] predniSONE [PredniSONE] 5 mg PO DAILY 02/26/17 [History] Ipratropium/Albuterol Neb [Duoneb] 3 ml IH Q6HR PRN #30 inh 03/01/17 [Rx] levoFLOXacin [Levaquin] 750 mg PO QPM #10 tab 03/01/17 [Rx] Allergies/Adverse Reactions: 3 Allergy/AdvReac Type Severity Reaction Status Date / Time No Known Allergies Allergy Verified 02/14/15 07:39 Date of admission: 02/26/17 23:01 Primary care physician: Nancy Carnes Consults: 02/26/17 23:05 Consult to Nurse Navigator [CONS] Routine Comment: Consult to Nurse Navigator [CONS] Routine Comment: 02/26/17 23:16 Consult to Respiratory Therapy [CONS] Routine Reason for Consult: OSA_on CPAP Call Completed: No Anticipated date of discharge: 03/01/17 - Patient Status Disposition: Home, Self-Care Condition: Good Functional capacity at discharge: independent ambulation Overall status at discharge: patient is progressing back to baseline - Discharge Instructions Instructions: Levofloxacin (By mouth), Chronic Obstructive Pulmonary Disease ( DC), Pneumonia (DC) Follow Up With: Dong Macedo DO [Primary Care Provider] - 03/08/17 12:00 pm Additional Instructions: - Advised to follow up with oncologist at [facility] - Patient advised to continue all meds as per discharge instructions and to complete antibiotic course - Advised to follow up with primary care physician - Return if symptoms worsen - Diet and Activity Activity: increase activity as tolerated, wear oxygen at all times Diet: advance to your usual diet, low fat, low cholesterol Hospital course: Mr. Hancock is a 61 year old male with past medical history of rheumatoid arthritis, COPD, laryngeal cancer status post radiation therapy, atrial flutter status post ablation, coronary artery disease status post stents, obstructive sleep apnea, hypertension, history of renal cancer status post right nephrectomy , prostate cancer status post brachytherapy and hyperlipidemia. Patient presented to the ED with complaints of shortness of breath and cough with productive sputum. He underwent a scheduled surveillance CT scan by oncology recently which revealed right upper lobe pneumonia. He then presented to the hospital for treatment. Patient also complained of body aches and subjective fever and diaphoresis and dizziness. Patient was admitted to the medical floor for healthcare associated pneumonia. Patient was started on IV Zosyn, IV vancomycin and Levaquin. Patient is also on DuoNeb breathing treatment. Also medications were continued. Symptoms of shortness of breath and cough improved slowly. Patient is oxygen dependent at home, on 3 L via nasal cannula. Cultures show no growth. Lactic acid is 1.0 and WBC is 6.0. Patient was also found to have a new lung nodule seen on CT chest. He has been advised to follow-up with his oncologist. Patient and his state that they would like to follow up with the oncologist at [facility]. Patient tolerated all his meds well. He had no other acute events or complications during his stay in the hospital. Patient and his have been explained about his condition and plan of care in detail. They understood and agreed. No unanswered questions. Patient is tolerating oral diet well and ambulating well. He has been advised to eat the antibiotic course at home and also to continue breathing treatment at home. Patient is being discharged in a stable condition. - Time Spent with Patient Total time spent providing and/or coordinating discharge services: Greater than 30 minutes - Constitutional Vitals: Temp Pulse Resp BP Pulse Ox 98.4 F 95 18 91/55 97 03/01/17 10:47 03/01/17 10:47 03/01/17 11:20 03/01/17 10:47 03/01/17 11:20 General appearance: Present: A&O X 3, pleasant, no acute distress, obese, answers questions appropriately - Head Head exam: Present: atraumatic - Eye Eye exam: Present: EOMI - ENT ENT exam: Present: mucous membranes moist - Respiratory Respiratory exam: Present: CTAB. Absent: rales, rhonchi, wheezes, tachypnea - Cardiovascular Cardiovascular exam: Present: RRR, +S1, +S2 - GI/Abdominal GI/Abdominal exam: Present: soft. Absent: distended, firm, guarding, tenderness - Extremities Exam Extremities exam: Present: radial pulses palpable and symmetrical. Absent: cyanotic, pedal edema - Neurological Exam Neurological exam: Present: alert, oriented X3, no focal deficits. Absent: facial droop, speech deficit
[2017-03-01] MEDS ORDERED: Aminoglycoside Consult 1 EACH MC ONE (13:55)
== END 2017-03-01 13:56 | disposition home or self-care (01) | DRG 190 ==
LOC: EMEROO 18:23 → 3ANU 18:23
PROVIDERS: ADMIT Internal Medicine; ATTEND Internal Medicine